=== PATIENT | male | born 1995 | race Caucasian/White ===

== ENCOUNTER → 2016-06-29 | Outpatient (CLI) | payer OTHER ==
[~2016-06-29] MED LIST: ACET-819 PO; ALBU17AE3; ATOM60CA3; MNTL10T; SERT50TA
--- NOTE | 2016-06-29 17:31 | Diagnostic Imaging Report ---
INDICATION: Right rib pain with no known injury. TECHNIQUE: Four views of the chest and right ribs were obtained. FINDINGS: The heart size and vascularity are normal. The lungs are clear. There is no effusion or pneumothorax. No rib fracture or bony lesion is seen. IMPRESSION: Normal chest and right ribs. Dictated by: Dictated on workstation # [id number]
== END ==
LOC: RAD 16:45
PROVIDERS: ATTEND Nurse Practitioner Family
DX: R07.81 Pleurodynia (principal)
CPT/HCPCS: 71101

== ENCOUNTER 2017-09-20 12:56 | Day surgery (SDC) | payer BC, OTHER ==
[~2017-09-20] VITALS: Ht 170.2 cm; Wt 56.7 kg
[2017-09-20] MEDS ORDERED: LACTATED RINGERS 1,000 ML IV STA (13:34)
[2017-09-20] MEDS ORDERED: RANI150T46 PO (13:40)
[2017-09-20] MEDS ORDERED: CETI10CA PO (13:40)
[2017-09-20] MEDS ORDERED: IBUP-2055 PO (13:40)
[2017-09-20 13:45] VITALS: BP 125/71
[2017-09-20] MEDS ORDERED: LACTATED RINGERS 1,000 ML IV ONE (13:45)
[2017-09-20] MEDS ORDERED: GLYCOPYRROLATE 0.2 MG/ML (ROBINUL) 2 ML VIAL IV ONE (13:45)
[2017-09-20] MEDS ORDERED: LIDOCAINE TOPICAL 4% 50 ML BTL TP ONE (13:45)
[2017-09-20] MEDS ORDERED: GLYCOPYRROLATE 0.2 MG/ML (ROBINUL) 2 ML VIAL ONE (13:47)
[2017-09-20] MEDS ORDERED: LIDOCAINE TOPICAL 4% 50 ML BTL ONE (13:47)
--- NOTE | 2017-09-20 14:19 | Progress Note-Pre Operative ---
Pre-Operative Progress Note H&P Reviewed The H&P was reviewed, patient examined and no changes noted. Date Seen by Provider: Sep 20, 2017 Time Seen by Provider: 14:19 Date H&P Reviewed: Sep 20, 2017 Time H&P Reviewed: 14:19 Pre-Operative Diagnosis: nausea, epigastric abdominal pain AMBROCIO HINOJOSA DO Sep 20, 2017 14:19
[2017-09-20] MEDS ORDERED: proPOfol 200 MG/20 ML (DIPRIVAN) VIAL IV ONE ×2 (14:20→14:29)
[2017-09-20] MEDS ORDERED: MIDAZOLAM 5 MG/5 ML (VERSED) VIAL ONE (14:20)
[2017-09-20] MEDS ORDERED: KETAMINE HCL 100 MG/ML 5 ML VIAL ONE (14:36)
--- NOTE | 2017-09-20 14:48 | Progress Note-Post Operative ---
Post-Operative Progess Note Surgeon (s)/Spragger (s) Surgeon AMBROCIO HINOJOSA DO Spragger: na Pre-Operative Diagnosis nausea, epigastric abdominal pain Post-Operative Diagnosis small hiatal hernia Procedure & Operative Findings Date of Procedure 09/20/17 Procedure Performed/Findings egd c biopsy Anesthesia Type per [facility] Estimated Blood Loss Estimated blood loss (mL): none Specimens/Packing Specimens Removed antrum AMBROCIO HINOJOSA DO Sep 20, 2017 14:48
[2017-09-20] MEDS ORDERED: PANT40TA2 PO (14:49)
--- NOTE | 2017-09-20 14:50 | Discharge Inst-Simple/Standard ---
Discharge Inst-Standard Discharge Medications New, Converted or Re-Newed RX: Transmitted to Pharmacy Patient Instructions/Follow Up Plan of Care/Instructions/FU: 2 weeks Artemio Activity as Tolerated: Yes Discharge Diet: Regular Diet AMBROCIO HINOJOSA DO Sep 20, 2017 14:50
[2017-09-20 15:20] VITALS: BP 130/75
[2017-09-20 15:45] VITALS: BP 135/78
[2017-09-20 15:48] VITALS: BP 135/78
--- NOTE | 2017-09-20 22:15 | OPERATIVE REPORT ---
DATE OF SERVICE: 09/20/2017 PREOPERATIVE DIAGNOSIS: Nausea, epigastric abdominal pain. POSTOPERATIVE DIAGNOSIS: Small hiatal hernia. PROCEDURE: EGD with biopsy. SURGEON: Ambrocio Ulloa DO ANESTHESIA: Per MDA. ESTIMATED BLOOD LOSS: None. COMPLICATIONS: None. INDICATIONS: The patient is a 21-year-old male who has been having nausea and some epigastric abdominal pain. He understands risks and benefits of the procedure and wished to proceed with the procedure. Consent was signed in the chart. DESCRIPTION OF PROCEDURE: The patient was taken to the endoscopy suite, placed in the left lateral recumbent position. Timeout was performed. Scope was inserted into the mouth, down the esophagus, stomach and into the duodenum without difficulty. There were no polyps, masses or ulcerations within the duodenum. Scope was slowly retracted back into the stomach where it was further insufflated. With insufflation, the patient began having lots of belching present. Biopsy of the antrum was obtained. There are no polyps, masses or ulcerations present. Scope was retroflexed noting a small hiatal hernia, no other pathology noted. Scope was returned to its normal position, slowly withdrawn to the distal esophagus. No polyps, masses, ulcerations or erythematous changes present. Scope was slowly retracted back to completely remove, noting no other pathology. The patient tolerated the procedure well without any complications and was taken to recovery room in stable condition. RECOMMENDATIONS: The patient will be started on Protonix 40 mg daily. We will stop his Zantac at this time. We will have him follow up in a couple of weeks to see how he is doing at that time. Further recommendations are pending. Job ID: [id number] DocumentID: [id number] Dictated Date: 09/20/2017 14:54:25 Domestic Violence Advocate Date: 09/20/2017 19:47:43 Dictated By: AMBROCIO ULLOA DO
[2017-10-28] MEDS ORDERED: ACHD5005 PO (10:29)
[2017-10-28] MEDS ORDERED: DOCU-143 PO (10:29)
== END 2017-09-20 15:50 | disposition home or self-care (01) ==
LOC: ENDO 12:56
PROVIDERS: ATTEND Surgery
DX: K21.9 Gastro-esophageal reflux disease without esophagitis (principal); K44.9 Diaphragmatic hernia without obstruction or gangrene

== ENCOUNTER → 2017-09-23 | Outpatient (CLI) | payer BC, OTHER ==
[~2017-09-23] MED LIST changes: +CETI10CA PO; +IBUP-2055 PO; +PANT40TA2 PO; +RANI150T46 PO
--- NOTE | 2017-09-23 09:01 | Diagnostic Imaging Report ---
PROCEDURE: US Gallbladder. TECHNIQUE: Multiple real-time grayscale images were obtained over the right upper quadrant in various projections. INDICATION: Nausea and right lower quadrant lump. FINDINGS: The liver is normal in size at 14 cm. No discrete liver mass is detected. Gallbladder is without stones or sludge. No wall thickening or pericholecystic fluid is seen. No biliary ductal dilatation is seen. The pancreas and right kidney are unremarkable. There is no ascites. Sonographic interrogation of the right lower quadrant at the area of lump was also performed. No sonographic abnormality is seen. IMPRESSION: Unremarkable gallbladder ultrasound. Dictated by: Dictated on workstation # [id number]
== END ==
LOC: RAD 08:25
PROVIDERS: ATTEND Surgery
DX: R19.03 Right lower quadrant abdominal swelling, mass and lump (principal); R11.0 Nausea
CPT/HCPCS: 76705

== ENCOUNTER → 2017-09-28 | Outpatient (CLI) | payer BC, OTHER ==
[~2017-09-28] MED LIST changes: +ACHD5005 PO; +CATHETER FLUSH 10 ML SYR IV PRN; +DOCU-143 PO
--- NOTE | 2017-09-28 13:34 | Diagnostic Imaging Report ---
INDICATION: Epigastric pain. TECHNIQUE: The patient was administered 5.3 mCi of technetium 99m Choletec intravenously and imaging over the abdomen was performed. After 60 minutes, the patient ingested one can of Ensure and a gallbladder ejection fraction was calculated. FINDINGS: There is homogeneous uptake of activity by the liver with prompt excretion of activity into the gallbladder and common duct. Normal passage of activity into the small bowel is seen. The gallbladder ejection fraction is normal at 39%. IMPRESSION: Normal HIDA scan and gallbladder ejection fraction. Dictated by: Dictated on workstation # [id number]
== END ==
LOC: CARD 10:36
PROVIDERS: ATTEND Surgery
DX: R10.13 Epigastric pain (principal)
CPT/HCPCS: 78227

== ENCOUNTER 2017-10-26 06:30 | Outpatient (CLI) | payer BC ==
[~2017-10-26] VITALS: Ht 170.2 cm; Wt 56.7 kg
[~2017-10-26 06:30] MED LIST changes: -ACHD5005 PO; -CATHETER FLUSH 10 ML SYR IV PRN; -DOCU-143 PO
[2017-10-28] MEDS ORDERED: DOCU-143 PO (10:29)
[2017-10-28] MEDS ORDERED: ACHD5005 PO (10:29)
== END 2017-10-26 14:39 | disposition home or self-care (01) ==
LOC: PREOP 06:30
PROVIDERS: ATTEND Surgery
DX: Z01.818 Encounter for other preprocedural examination (principal)

== ENCOUNTER → 2017-12-30 | Outpatient (CLI) | payer BC, OTHER ==
[~2017-12-30] MED LIST changes: +ACHD5005 PO; +DOCU-143 PO
[2017-12-30 10:51] LABS: HEMOGLOBIN 14.9 G/DL (13.3-17.7); MEAN PLATELET VOLUME 9.8 FL (7.4-10.4); RED BLOOD COUNT 4.56 10^6/uL (4.35-5.85); RED CELL DISTRIBUTION WIDTH 12.9 % (10.0-14.5); WHITE BLOOD COUNT 7.1 10^3/uL (4.3-11.0)
[2017-12-30 11:03] LABS: ALANINE AMINOTRANSFERASE 15 U/L (0-55); ALBUMIN 4.5 GM/DL (3.2-4.5); ALKALINE PHOSPHATASE 63 U/L (40-136); BILIRUBIN,TOTAL 0.5 MG/DL (0.1-1.0); BUN/CREATININE RATIO 11; CALCIUM 9.6 MG/DL (8.5-10.1); CARBON DIOXIDE 26 MMOL/L (21-32); CHLORIDE 105 MMOL/L (98-107); CHOLESTEROL 150 MG/DL (< 200); CREATININE SERUM 1.01 MG/DL (0.60-1.30); GFR ESTIMATED > 60; GLUCOSE 97 MG/DL (70-105); HDL CHOLESTEROL 59 MG/DL (40-60); POTASSIUM 4.4 MMOL/L (3.6-5.0); SODIUM 140 MMOL/L (135-145); TOTAL PROTEIN 7.3 GM/DL (6.4-8.2); TRIGLYCERIDES 64 MG/DL (<150); VLDL CHOLESTEROL 13 MG/DL (5-40)
== END ==
LOC: LAB 10:17
PROVIDERS: ATTEND Nurse Practitioner Community Health
DX: R01.1 Cardiac murmur, unspecified (principal); R07.89 Other chest pain; Z82.49 Family history of ischemic heart disease and other diseases of the circulatory system
CPT/HCPCS: 36415; 80053; 80061; 83036; 84443; 85027; 86141; 93005

== ENCOUNTER → 2018-01-03 | Outpatient (CLI) | payer BC, OTHER | LOC: CARD 12:49 | PROVIDERS: ATTEND Nurse Practitioner Community Health | DX: R01.1 Cardiac murmur, unspecified (principal); R07.89 Other chest pain; Z82.49 Family history of ischemic heart disease and other diseases of the circulatory system | CPT/HCPCS: 93306 ==

== ENCOUNTER → 2018-02-06 | Outpatient (CLI) | payer BC, OTHER ==
--- NOTE | 2018-02-08 09:55 | Cardiology Stress Test Report ---
Stress Test Report Date of Procedure/Referring: Date of Procedure: Feb 06, 2018 PCP Fer Linares MD Admitting Physician Crescencio Jimenes MD Indications: Chest pain Heart murmur Baseline Heart Rate: 71 Baseline Blood Pressure: Blood Pressure Systolic: 138 Blood Pressure Diastolic: 65 Baseline EKG: Baseline EKG: sinus rhythm with incomplete right bundle branch block Summary: In summary, the patient started exercising with a baseline heart rate, blood pressure and EKG mentioned above Patient was able to exercise for a total of 11 minutes on [facility] protocol, 12.1 METs Maximum heart rate 171 bpm Maximum blood pressure 183/82 Stress EKG Minimal nondiagnostic changes Recovery EKG Return to baseline Conclusion: 1. Good exercise tolerance for a total of 11 minutes on [facility] protocol, 12.1 METs, achieving 86 percent of maximum expected heart rate 2. Minimal nondiagnostic EKG changes with exercise returned to baseline during recovery 3. No arrhythmia was noted FER LINARES MD Feb 08, 2018 09:55
[2018-02-08 09:57] VITALS: BP 138/65
== END ==
LOC: CARD 09:37
PROVIDERS: ATTEND Internal Medicine Cardiovascular Disease
DX: R07.9 Chest pain, unspecified (principal); R01.1 Cardiac murmur, unspecified; G43.909 Migraine, unspecified, not intractable, without status migrainosus; F90.9 Attention-deficit hyperactivity disorder, unspecified type; Z82.49 Family history of ischemic heart disease and other diseases of the circulatory system
CPT/HCPCS: 93017

== ENCOUNTER 2018-08-19 09:37 | Emergency (ER) | payer BC ==
[~2018-08-19] VITALS: Ht 177.8 cm; Wt 59.0 kg
[2018-08-19] MEDS ORDERED: methylPREDNISolone 125 MG (Solu-MEDROL) VIAL IVP ONE (10:15)
[2018-08-19] MEDS ORDERED: FAMOTIDINE 20MG/2ML IV (PEPCID) IVP ONE (10:15)
[2018-08-19] MEDS ORDERED: diphenhydrAMINE 50 MG/ML INJ (BENADRYL) IVP ONE (10:15)
[2018-08-19] MEDS ORDERED: RT-ALBUTEROL/IPRATROPIUM 3 ML (DUONEB) VIAL INH ONE (10:30)
--- NOTE | 2018-08-19 10:50 | NUR ---
Pt reports easier breathing at this time. Pt's face less red and swollen at this time.
--- NOTE | 2018-08-19 12:16 | ED General ---
General Chief Complaint: Allergic Reaction Stated Complaint: ALLERGIC REACTION - SOA Nursing Triage Note: Pt to ED with complaint of allergic reaction. Pt reports being at work when eyes became itchy and pt began feeling SOB. Pt was at work putting up a tent outside when symptoms began. Pt denies eating any new foods or taking any new medications today. Pt's eye swollen and watering, face and eyes red. Nursing Sepsis Screen: No Definite Risk Source of Information: Patient Exam Limitations: No Limitations History of Present Illness Date Seen by Provider: Aug 19, 2018 Time Seen by Provider: 10:00 Initial Comments This 22-year-old young man presents to the emergency room with diffuse hive-like rash, swelling around his face and eyes, watery eyes, and shortness of breath. Patient was working on setting up an outdoor tent at work when the symptoms started. He denies any new exposures such as food, chemicals, etc. He has never had this type of reaction before. He has no known severe allergies. He denies any swelling of the tongue or throat. He has slight swelling of the lips. Allergies and Home Medications Allergies Coded Allergies: NKANo Known Allergies (Unverified Allergy, Mild, 06/22/08) Home Medications Albuterol Sulfate 1 Puff Puff, 1-4 PUFF IH Q4H PRN for SHORTNESS OF BREATH 1 PUFF = 90 MCG Prescribed by: PITO WILKINS on 08/19/18 1225 Cetirizine HCl 10 Mg Capsule, 10 MG PO DAILY, (Reported) Docusate Sodium 100 Mg Capsule, 100 MG PO DAILY Prescribed by: AMBROCIO HINOJOSA on 10/28/17 1029 Epinephrine 0.3 Mg/0.3 Ml Auto.injct, 0.3 MG IJ UD Prescribed by: PITO WILKINS on 08/19/18 1225 Famotidine 20 Mg Tablet, 20 MG PO BID Prescribed by: PITO WILKINS on 08/19/18 1225 Hydrocodone Bit/Acetaminophen 1 Tab Tab, 1 TAB PO Q4H PRN Prescribed by: AMBROCIO HINOJOSA on 10/28/17 1029 Pantoprazole Sodium 40 Mg Tablet.dr, 40 MG PO DAILY Prescribed by: AMBROCIO HINOJOSA on 09/20/17 1449 Prednisone 20 Mg Tab, 20 MG PO DAILY Prescribed by: PITO WILKINS on 08/19/18 1225 Patient Home Medication List Home Medication List Reviewed: Yes Review of Systems Review of Systems Constitutional: no symptoms reported EENTM: see HPI Respiratory: see HPI Cardiovascular: no symptoms reported Gastrointestinal: no symptoms reported Genitourinary: no symptoms reported Musculoskeletal: no symptoms reported Skin: see HPI Psychiatric/Neurological: No Symptoms Reported Hematologic/Lymphatic: No Symptoms Reported Immunological/Allergic: see HPI Past Cmhqghw-Xqmvld-Nqhrxh Hx Past Med/Social Hx: Reviewed Nursing Past Med/Soc Hx Patient Social History Alcohol Use: Occasionally Uses Number of Drinks Today: AA Alcohol Beverage of Choice: Beer Recreational Drug Use: No Smoking Status: Current Someday Smoker Type Used: Electronic/Vapor Recent Foreign Travel: No Contact w/Someone Who Travel: No Recent Infectious Disease Expo: No Recent Hopitalizations: No Immunizations Up To Date Date of Influenza Vaccine: Dec 13, 2011 Seasonal Allergies Seasonal Allergies: Yes Past Medical History Surgeries: Yes (pectis excavatum) Respiratory: Yes Asthma Cardiac: No Neurological: No Reproductive Disorders: No Gastrointestinal: Yes Gastroesophageal Reflux, Gall Bladder Disease Musculoskeletal: No Endocrine: No HEENT: No Cancer: No Psychosocial: No Integumentary: No Blood Disorders: No Physical Exam Vital Signs Vital Signs - First Documented 08/19/18 09:37 Temp 98.2 Pulse 105 Resp 18 B/P (MAP) 147/83 (104) Pulse Ox 91 O2 Delivery Room Air Capillary Refill : Less Than 3 Seconds Height, Weight, BMI Height: 5'10.00" Weight: 130lbs. 0.0oz. 58.822386vs; 21.1 BMI Method:Stated General Appearance: No Apparent Distress, WD/WN HEENT: PERRL/EOMI, Pharynx Normal, Other (Mild swelling around the eyes and lips. No tongue or pharyngeal swelling) Neck: Normal Inspection Respiratory: No Accessory Muscle Use, No Respiratory Distress, Wheezing Cardiovascular: No Edema, No Murmur, Tachycardia Gastrointestinal: Non Tender, Soft Extremity: Normal Inspection, No Pedal Edema Neurologic/Psychiatric: Alert, Oriented x3, No Motor/Sensory Deficits, Normal Mood/Affect, clinical transplant coordinator II-XII Norm as Tested Skin: Warm/Dry, Rash (Diffuse hive-like rash) Progress/Results/Core Measures Suspected Sepsis Recent Fever Within 48 Hours: No Infection Criteria Present: None New/Unexplained Altered Menta: No Sepsis Screen: No Definite Risk SIRS Temperature:98.2 Pulse: 105 Respiratory Rate: 18 Blood Pressure 147 /83 Mean: 104 Results/Orders My Orders Orders - PITO SOLANO MD [facility] Push Clinical Exercise Specialist Ed (08/19/18 ) Medications Given in ED Vital Signs/I&O Capillary Refill : Less Than 3 Seconds Blood Pressure Mean: 104 Progress Note : Progress Note Patient was treated with Benadryl, Pepcid, and Solu-Medrol with good improvement. The allergic reaction seems to have triggered an asthma exacerbation as well. Wheezing resolved with a DuoNeb treatment. Patient was feeling better and was dismissed home after a period of observation. Return precautions were discussed. Management of future reactions was reviewed. EpiPen was prescribed. Departure Impression Primary Impression: Allergic reaction Qualified Codes: T78.40XA - Allergy, unspecified, initial encounter Additional Impression: Asthma exacerbation Qualified Codes: J45.901 - Unspecified asthma with (acute) exacerbation Disposition: 01 HOME, SELF-CARE Condition: Improved Departure-Patient Inst. Decision time for Depature: 12:15 [place]: [facility] [place] Primary Care Physician JOHNNY AGUILAR (Family) Primary Care Physician Patient Instructions: Anaphylaxis (DC), Asthma in Adults, Epinephrine Autoinjectors Add. Discharge Instructions: You may continue taking long-acting antihistamine such as Claritin or Zyrtec daily. If your rash or itching returns, you may add Benadryl (diphenhydramine) up to 50 mg every 4 hours as needed. If you have a severe reaction that involves airway problems or throat swelling use your EpiPen as directed and seek immediate attention in the emergency room or call 911. For wheezing or shortness of breath, you may use your inhaler as prescribed. Complete the prednisone steroid course as directed. Also complete 3 or 4 days of Pepcid (famotidine) as prescribed. Follow-up with your primary care provider soon as possible. Investigate possible triggers and avoid those in the future. All discharge instructions reviewed with patient and/or family. Voiced understanding. Scripts Epinephrine (Epipen 2-Keshawn) 0.3 Mg/0.3 Ml Auto.injct 0.3 MG IJ UD, #1 EA Prov: PITO SOLANO MD 08/19/18 Famotidine (Pepcid) 20 Mg Tablet 20 MG PO BID, #10 TAB Prov: PITO SOLANO MD 08/19/18 Prednisone (Prednisone) 20 Mg Tab 20 MG PO DAILY, #4 TAB 0 Refills Prov: PITO SOLANO MD 08/19/18 Albuterol Sulfate (PROAIR HFA) 1 Puff Puff 1-4 PUFF IH Q4H PRN for SHORTNESS OF BREATH, #1 PUFF 1 PUFF = 90 MCG Prov: PITO SOLANO MD 08/19/18 Copy Copies To 1: SRINIVASAN BAR JOSHUA T MD Aug 19, 2018 12:15
[2018-08-19] MEDS ORDERED: EPIN0.3P3 IJ (12:25)
[2018-08-19] MEDS ORDERED: RT-ALBUINH IH (12:25)
[2018-08-19] MEDS ORDERED: FAMO-119 PO (12:25)
[2018-08-19] MEDS ORDERED: PRD20T PO (12:25)
[2018-08-19 12:40] VITALS: BP 112/70
== END 2018-08-19 12:37 | disposition home or self-care (01) ==
LOC: EDUNIT# 09:37 → ER 09:39
DX: T78.40XA Allergy, unspecified, initial encounter (principal); J45.901 Unspecified asthma with (acute) exacerbation; K21.9 Gastro-esophageal reflux disease without esophagitis; F17.210 Nicotine dependence, cigarettes, uncomplicated; Z79.52 Long term (current) use of systemic steroids; Z87.19 Personal history of other diseases of the digestive system
CPT/HCPCS: 94640; 96374; 96375